=== PATIENT | male | born 1980 | race Caucasian/White ===

== ENCOUNTER 2017-02-15 10:17 | Emergency (ER) | payer BC ==
[~2017-02-15] VITALS: Ht 190.5 cm; Wt 88.5 kg
[~2017-02-15 10:17] MED LIST: CLIN1CAP3; NAPR250T74; TRAM50TA2
[2017-02-15 10:36] VITALS: BP 125/81
[2017-02-15] MEDS ORDERED: SILVER SULFADIAZINE 1 % TOPICAL CREAM 50GM TOP ONE (12:00)
== END 2017-02-15 12:12 | disposition home or self-care (01) ==
LOC: ER 10:21
DX: T25.222A Burn of second degree of left foot, initial encounter (principal); T31.0 Burns involving less than 10% of body surface; F17.210 Nicotine dependence, cigarettes, uncomplicated; F12.10 Cannabis abuse, uncomplicated; X19.XXXA Contact with other heat and hot substances, initial encounter; Y93.89 Activity, other specified; Y92.89 Other specified places as the place of occurrence of the external cause; Y99.8 Other external cause status
CPT/HCPCS: 16000

== ENCOUNTER 2017-06-25 19:14 | Emergency (ER) | payer SELFPAY ==
[~2017-06-25] VITALS: Ht 190.5 cm; Wt 83.9 kg
[2017-06-25 22:27] VITALS: BP 143/64
[2017-06-25] MEDS: LIDOCAINE 1% HCL (LOCAL ANESTH.) INJ 20ML MDV IN ONE ×2 (22:47→22:48)
== END 2017-06-26 00:12 | disposition home or self-care (01) ==
LOC: ER 19:21
DX: H60.02 Abscess of left external ear (principal)
CPT/HCPCS: 10160; 12001; 87205

== ENCOUNTER 2017-06-27 07:43 | Emergency (ER) | payer SELFPAY ==
[~2017-06-27] VITALS: Ht 190.5 cm; Wt 83.9 kg
[2017-06-27 08:05] VITALS: BP 133/80
[2017-06-27] MEDS ORDERED: NEOMYCIN-BACITRACIN-POLYM UNITDOSE PKG TOP OINT TOP ONE (08:30)
[2017-06-27] MEDS ORDERED: LIDOCAINE 1% HCL (LOCAL ANESTH.) INJ 20ML MDV IJ ONE (08:30)
== END 2017-06-27 08:50 | disposition home or self-care (01) ==
LOC: ER 07:43
DX: L72.3 Sebaceous cyst (principal); F17.210 Nicotine dependence, cigarettes, uncomplicated; F12.10 Cannabis abuse, uncomplicated; Z90.89 Acquired absence of other organs
CPT/HCPCS: 10060; 99283; J2001

== ENCOUNTER 2017-06-29 12:55 | Emergency (ER) | payer SELFPAY ==
[~2017-06-29] VITALS: Ht 190.5 cm; Wt 88.5 kg
[2017-06-29 13:29] VITALS: BP 108/72
== END 2017-06-29 13:40 | disposition home or self-care (01) ==
LOC: ER 12:55
DX: H66.42 Suppurative otitis media, unspecified, left ear (principal); F17.210 Nicotine dependence, cigarettes, uncomplicated; F12.10 Cannabis abuse, uncomplicated; Z48.01 Encounter for change or removal of surgical wound dressing

== ENCOUNTER 2017-12-06 17:34 | Emergency (ER) | payer SELFPAY ==
[~2017-12-06] VITALS: Ht 190.5 cm; Wt 86.2 kg
[2017-12-06 18:00] VITALS: BP 126/86
== END 2017-12-06 21:58 | disposition home or self-care (01) ==
LOC: ER 17:49
DX: L84 Corns and callosities (principal); F17.210 Nicotine dependence, cigarettes, uncomplicated; F12.10 Cannabis abuse, uncomplicated
CPT/HCPCS: 73140

== ENCOUNTER → 2020-03-01 | Emergency (ER) | payer BC ==
[~2020-03-01] VITALS: Ht 190.5 cm; Wt 94.3 kg
[~2020-03-01] MED LIST changes: +CLIN150C7; -CLIN1CAP3
[2020-03-01 09:59] LABS: Eosinophils # (auto) 0.1 10 ^3/uL (0-0.8); Mean Corpuscular Volume 96.8 fL (80.0-100.0); Monocytes # (auto) 1.2 10 ^3/uL (0-1.3); Monocytes % (auto) 8.9 % (0.0-12.0); Neutrophils # (auto) 9.8 10 ^3/uL (1.6-8.6)
[2020-03-01 10:01] LABS: Basophils # (auto) 0 10 ^3/uL (0-0.2); Basophils % (auto) 0.4 % (0.0-2.0); Eosinophils % (auto) 0.4 % (0.0-7.0); Hematocrit 52.8 % (41.0-53.0); Hemoglobin 18.1 g/dL (13.5-17.5); Lymphocytes % (auto) 15.3 % (10.0-50.0); Mean Corpuscular Hemoglobin 33.3 pg (28.0-32.0); Mean Corpuscular Hgb Conc. 34.3 g/dL (32.0-36.0); Platelet Count (auto) 243 10^3/uL (140-450); Red Blood Cells 5.46 10^6/uL (4.5-5.90); Red Cell Distribution Width 12.9 % (11.8-14.3); White Blood Cell 13.1 10^3/uL (4.4-10.8)
[2020-03-01 10:22] LABS: Albumin 4.1 g/dL (3.4-5.0); Anion Gap 9 (5-15); Blood Urea Nitrogen 17 mg/dL (7-18); Carbon Dioxide 24 mmol/L (21-32); Chloride 104 mmol/L (98-107); Glucose 104 mg/dL (74-106); Magnesium 2.5 mg/dL (1.6-2.6); Potassium 3.5 mmol/L (3.5-5.1); Sodium 137 mmol/L (136-145)
[2020-03-01 10:28] LABS: Alanine Aminotransferase 41 U/L (16-61); Alkaline Phosphatase 91 U/L (45-117); Aspartate Aminotransferase 20 U/L (15-37); BUN/Creatinine Ratio 13.8; Bilirubin, Total 0.9 mg/dL (0.2-1.0); Calcium 9.3 mg/dL (8.5-10.1); GFR African American 84 mL/min; GFR Non-African American 70 mL/min; Total Protein 8.1 g/dL (6.4-8.2)
[2020-03-01 11:22] LABS: Urine Bacteria NONE SEEN /hpf (None Seen); Urine Blood Negative /uL (Negative); Urine Mucus FEW (None Seen); Urine Specific Gravity 1.023 (1.001-1.035); Urine WBC 1 /hpf (0 - 3)
[2020-03-01 12:30] VITALS: BP 129/87
== END | disposition home or self-care (01) ==
LOC: ER 08:40
DX: E86.0 Dehydration (principal); D72.829 Elevated white blood cell count, unspecified; R10.84 Generalized abdominal pain; F17.210 Nicotine dependence, cigarettes, uncomplicated
CPT/HCPCS: 36415; 71046; 74176; 80053; 81001; 83735; 84484; 85025; 93005

== ENCOUNTER 2020-06-10 09:47 | Emergency (ER) | payer BC ==
[~2020-06-10] VITALS: Ht 190.5 cm; Wt 95.3 kg
[2020-06-10 10:26] LABS: Hemoglobin 19.3 g/dL (13.5-17.5); Mean Corpuscular Hemoglobin 32.9 pg (28.0-32.0); Monocytes # (auto) 1.1 10 ^3/uL (0-1.3)
[2020-06-10 10:30] LABS: Basophils # (auto) 0 10 ^3/uL (0-0.2); Basophils % (auto) 0.3 % (0.0-2.0); Eosinophils # (auto) 0 10 ^3/uL (0-0.8); Eosinophils % (auto) 0.3 % (0.0-7.0); Lymphocytes # (auto) 2.4 10 ^3/uL (0.4-5.4); Lymphocytes % (auto) 17.7 % (10.0-50.0); Mean Corpuscular Hgb Conc. 34.3 g/dL (32.0-36.0); Mean Corpuscular Volume 95.9 fL (80.0-100.0); Monocytes % (auto) 8.4 % (0.0-12.0); Neutrophils % (auto) 73.3 % (37.0-80.0); Nucleated Red Blood Cells % 0.1 %; Platelet Count (auto) 257 10^3/uL (140-450); Red Blood Cells 5.86 10^6/uL (4.5-5.90); Red Cell Distribution Width 13.4 % (11.8-14.3); White Blood Cell 13.6 10^3/uL (4.4-10.8)
[2020-06-10] MEDS: LORazepam 2MG/ML-1ML VIAL IV ONE (10:30)
[2020-06-10 10:40] LABS: Hematocrit 56.2 % (41.0-53.0)
[2020-06-10 10:43] LABS: Albumin 4.5 g/dL (3.4-5.0); Anion Gap 9 (5-15); Blood Urea Nitrogen 20 mg/dL (7-18); Calcium 9.7 mg/dL (8.5-10.1); Carbon Dioxide 24 mmol/L (21-32); Chloride 102 mmol/L (98-107); Glucose 109 mg/dL (74-106); Potassium 4.1 mmol/L (3.5-5.1); Sodium 135 mmol/L (136-145)
[2020-06-10 10:48] LABS: Alanine Aminotransferase 32 U/L (16-61); Alkaline Phosphatase 95 U/L (45-117); Aspartate Aminotransferase 19 U/L (15-37); BUN/Creatinine Ratio 16.7; Bilirubin, Total 1.1 mg/dL (0.2-1.0); GFR African American 87 mL/min; GFR Non-African American 72 mL/min; Total Protein 8.6 g/dL (6.4-8.2)
[2020-06-10] MEDS: SODIUM CHLORIDE 0.9% 1,000 ML IV ONE ×2 (11:03)
[2020-06-10 11:10] LABS: INR 1.04 (0.9-1.15); Partial Thromboplastin Time 32.5 sec (23.0-31.2)
[2020-06-10 15:51] VITALS: BP 132/82
== END 2020-06-10 16:04 | disposition home or self-care (01) ==
LOC: ER 09:47
DX: R07.89 Other chest pain (principal); R10.9 Unspecified abdominal pain; E86.0 Dehydration; D72.829 Elevated white blood cell count, unspecified; F17.210 Nicotine dependence, cigarettes, uncomplicated; Z79.899 Other long term (current) drug therapy
CPT/HCPCS: 36415; 71045; 80053; 84484; 85025; 85610; 85730; 93005; 96361; 96374; 99285; J2060; J7030

== ENCOUNTER 2022-03-17 15:17 | Emergency (ER) | payer BC ==
[~2022-03-17] VITALS: Ht 190.5 cm; Wt 105.0 kg
[~2022-03-17 15:17] MED LIST changes: -CLIN150C7; +CLIN150C8
[2022-03-17] MEDS ORDERED: KETOROLAC TROMETH 30 MG/ML 1ML VIAL IV ONE (15:45)
[2022-03-17] MEDS ORDERED: SODIUM CHLORIDE 0.9% 1,000 ML IV ONE ×2 (15:45)
[2022-03-17 16:08] LABS: Basophils # (auto) 0.1 10 ^3/uL (0-0.2); Basophils % (auto) 0.5 % (0.0-2.0); Eosinophils # (auto) 0.1 10 ^3/uL (0-0.8); Eosinophils % (auto) 0.9 % (0.0-7.0); Hematocrit 49.1 % (41.0-53.0); Hemoglobin 16.2 g/dL (13.5-17.5); Lymphocytes # (auto) 2.1 10 ^3/uL (0.4-5.4); Lymphocytes % (auto) 18.9 % (10.0-50.0); Monocytes % (auto) 9.1 % (0.0-12.0); Neutrophils # (auto) 7.7 10 ^3/uL (1.6-8.6); Neutrophils % (auto) 70.6 % (37.0-80.0); Red Blood Cells 5.06 10^6/uL (4.5-5.90); Red Cell Distribution Width 13.1 % (11.8-14.3); White Blood Cell 10.9 10^3/uL (4.4-10.8)
[2022-03-17] MEDS ORDERED: IBU600T PO (16:19)
[2022-03-17] MEDS ORDERED: TAM04C PO (16:19)
[2022-03-17 16:24] LABS: Urine Bacteria NONE SEEN /hpf (None Seen); Urine Blood TRACE /uL (Negative); Urine Mucus FEW (None Seen); Urine Specific Gravity 1.036 (1.001-1.035); Urine WBC <1 /hpf (0 - 3)
[2022-03-17 16:25] LABS: Albumin 4.2 g/dL (3.4-5.0); Calcium 9.2 mg/dL (8.5-10.1); Potassium 4.1 mmol/L (3.5-5.1)
[2022-03-17 16:26] LABS: BUN/Creatinine Ratio 16.9
[2022-03-17 16:28] LABS: Bilirubin, Total 0.4 mg/dL (0.2-1.0); Total Protein 7.9 g/dL (6.4-8.2)
[2022-03-17] MEDS ORDERED: cefTRIAXone 1GM/50ML D5W 50 ML IV ONE (16:30)
[2022-03-17] MEDS ORDERED: TAMSULOSIN HYDROCHLORIDE 0.4 MG CAP PO ONE (16:30)
[2022-03-17 17:24] VITALS: BP 154/84
== END 2022-03-17 17:57 | disposition home or self-care (01) ==
LOC: ER 15:17
DX: N20.0 Calculus of kidney (principal); F17.210 Nicotine dependence, cigarettes, uncomplicated; Z90.89 Acquired absence of other organs; Z79.2 Long term (current) use of antibiotics; Z79.899 Other long term (current) drug therapy
CPT/HCPCS: 36415; 74176; 80053; 81001; 85025; 96361; 96374; 96375; 99284; J0696; J1885; J7030